=== PATIENT | female | born 1930 | race African-American/Black ===

== ENCOUNTER 2017-04-11 11:16 | Emergency (ER) | payer MEDICARE, MEDICAID ==
[2017-04-11 12:34] LABS: ALT (SGPT) 12 U/L (8-55); AST (SGOT) 17 U/L (5-34); Albumin 3.8 g/dL (3.4-4.8); Alkaline Phosphatase 74 U/L (40-150); Anion Gap 16 mmol/L (10-20); BUN (Urea Nitrogen) 11 mg/dL (9.8-20.1); Bilirubin, Total 0.4 mg/dL (0.2-1.2); Calc. Creatinine Clearance 0 mL/min (70-130); Calcium 10.1 mg/dL (7.8-10.44); Carbon Dioxide 28 mmol/L (23-31); Chloride 101 mmol/L (98-107); Estimated GFR-MDRD 80; Globulin 3.7 g/dL (2.4-3.5); Glucose 131 mg/dL (83-110); Potassium 3.8 mmol/L (3.5-5.1); Protein, Total 7.5 g/dL (6.0-8.3); Sodium 141 mmol/L (136-145)
[2017-04-11 12:36] LABS: CKMB 0.5 ng/mL (0-6.6); Troponin I 0.028 ng/mL (< 0.028)
[2017-04-11 12:40] LABS: Hemoglobin 12.8 g/dL (12.0-16.0); Mean Corpuscular HGB CONC 32.3 g/dL (32.0-36.0); Mean Corpuscular Volume 86.6 fl (81.0-99.0); Platelet Count 266 thou/uL (130-400); RBC Distribution Width 12.6 % (11.5-14.5); Red Blood Cell (RBC) Count 4.57 mill/uL (4.20-5.40); White Blood Cell (WBC) Count 6.8 thou/uL (4.8-10.8)
[2017-04-11 12:46] LABS: Eosinophils 1 % (0-10); Lymphocytes 59 % (21-51); MDiff Complete? YES; Monocytes 8 % (0-10); Neutrophil 31 % (42-75); PLT Morphology Comment Appears Adequate; RBC Morphology Normal
== END 2017-04-11 13:12 | disposition home or self-care (01) ==
LOC: BURERS 11:16
DX: H81.13 Benign paroxysmal vertigo, bilateral (principal); E78.5 Hyperlipidemia, unspecified; I10 Essential (primary) hypertension; Z79.899 Other long term (current) drug therapy
CPT/HCPCS: 80053; 82553; 84484; 85025; 93005